=== PATIENT | female | born 1960 | race Caucasian/White ===

== ENCOUNTER → 2020-01-28 11:32 | Outpatient (CLI) | payer BC, SELFPAY ==
[2020-01-28 12:13] LABS: Add Manual Diff / Slide Review NO; Basophils Absolute Auto 100 /uL (0-100); Eosinophils Absolute Auto 100 /uL (0-450); Eosinophils Percent Auto 1.3 % (2-4); Hematocrit 43.1 % (36-46); Hemoglobin 14.9 g/dL (12.0-16.0); Lymphocytes Absolute Auto 1800 /uL (1100-4500); Lymphocytes Percent Auto 24.1 % (25-40); Mean Corpuscular HGB Conc 34.5 % (30-36); Mean Corpuscular Hemoglobin 29.1 PG (26-34); Mean Corpuscular Volume 84.4 fL (80-100); Monocytes Absolute Auto 600 /uL (0-900); Monocytes Percent Auto 7.4 % (3-14); Neutrophils Absolute Auto 5000 /uL (1500-7000); Neutrophils Percent Auto 66.2 % (50-75); Platelet Count 298 X10^3/uL (150-400); Red Cell Distribution Width 12.8 % (11.6-14.8); White Blood Cell Count 7.6 X10^3/uL (4.5-11.0)
== END ==
PROVIDERS: PCP Nurse Practitioner; Referring Provider Orthopaedic Surgery; Visit Provider Orthopaedic Surgery
DX: Z01.818 Encounter for other preprocedural examination (principal); Z01.812 Encounter for preprocedural laboratory examination
CPT/HCPCS: 36415; 85025; 93005

== ENCOUNTER → 2020-02-01 13:11 | Outpatient (CLI) | payer BC, SELFPAY ==
[2020-02-02 01:10] LABS: COVID19 Sendout Not Detected (Not Detect)
== END ==
PROVIDERS: PCP Nurse Practitioner; Visit Provider Physician Assistant
DX: Z01.812 Encounter for preprocedural laboratory examination (principal)
CPT/HCPCS: 87635

== ENCOUNTER 2020-02-04 06:13 | Day surgery (SDC) | payer BC, SELFPAY ==
[2020-01-28 09:54] VITALS: BMI 25.4
[2020-02-04] VITALS (16 sets, daily range): BP systolic 123–162; BP diastolic 79–109; PULSE 76–114; RESP 14–17; TEMP 35.9–36.4; O2SAT 88–100; BMI 24.5
--- NOTE | 2020-02-04 | DI.RAD.S_ITS ---
PROCEDURE: XR CERVICAL SPINE 2V OR 3V INDICATIONS: C4-5, C5-6 ACDF TECHNIQUE: 2 view(s) of the cervical spine were acquired. COMPARISON: None. FINDINGS: 2 intraoperative fluoroscopy demonstrate discectomy and anterior fusion at C4-C5 and C5-C6. IMPRESSION: Discectomy and anterior fusion at C4-C5 and C5-C6. Dictated by: Last Morgan M.D. on 02/04/2020 at 9:52 Approved by: Last Morgan M.D. on 02/04/2020 at 9:53
[2020-02-04] MEDS: LACTATED RINGERS 1,000 ML 42 ML IV ×2 (07:14→08:50)
--- NOTE | 2020-02-04 07:20 | P.HP_ITS ---
History of Present Illness History of Present Illness Date Patient Seen: 02/04/20 Time Patient Seen: 07:20 Chief complaint: *OPB*[id number] Narrative: 60-year-old female with neck pain and radiation going down her legs. Symptoms started April 2019 without incident. When she takes her head down she gets numbness and tingling and burning that goes globally down both her legs to the ankles. Her neck feels heavy at times but is not severely painful. She does have frequent headaches. She denies pain numbness or weakness going on the arms. She does have some pain in the low back. Patient History Medical History Cervical myelopathy (Acute) Migraines (Acute) Neck pain (Acute) Numbness (Acute) Sinus drainage (Acute) Surgical History Hx of thumb surgery (Acute) [place] teeth removed (Acute) Family & Social History Social History: household members spouse Prior Living Arrangements House Safety & Behavioral: Feels Safe in Current Yes Environment Been Physically Hurt or No Threatened By a Person Suicidal Ideation Description None Suicide Plan Description No Plan Tobacco & Substance use: Smoking Status Never smoker alcohol intake never Substance Use Type does not use Meds Home Medications and Allergies Home Medications Medication Instructions Recorded Confirmed Type No Known Home Medications 01/28/20 01/28/20 History Allergies Allergy/AdvReac Type Severity Reaction Status Date / Time Penicillins Allergy Severe All over Verified 02/01/20 13:20 body hives codeine AdvReac Severe I feel Verified 02/01/20 13:20 like I'm going to fall off the end of the earth erythromycin base AdvReac Severe Gastrointestinal Verified 02/01/20 13:20 Upset Review of Systems Constitutional Constitutional: Denies chills and Denies fever(s) Exam Vital Signs (past 8 hours): - 02/04/20 06:59 Temperature 97.6 F Pulse Rate 76 Respiratory Rate 16 Blood Pressure 140/93 H Pulse Oximetry 100 Oxygen Delivery Method Room Air Const Orientation: alert and oriented x3 Resp Auscultation: clear to auscultation bilaterally Cardio Rate: regular rate Rhythm: regular rhythm Back/Spine/Pelvis Other: 5/5 motor both upper extremities, negative Marisa both upper extremities. 3+ bilateral triceps reflex. Tender lower cervical paraspinal muscles. Flexion of the neck reproduces symptoms in the legs. Objective Imaging Cervical MRI: My impression: From 09/24/2019 shows I C4-5 moderate central, severe right moderate to severe left foraminal narrowing. C5-6 moderate central, severe bilateral foraminal narrowing. C6-7 mild bilateral foraminal narrowing C7-T1 opened. Increased signal posterior in the spinal cord at C6. Assessment & Plan Assessment & Plan narrative: Cervical stenosis with myelopathy We are going to go ahead today with C4-5 and C5-6 ACDF with bone graft. All questions have been answered. Consent obtained. COVID-19 COVID-19 status: Negative Result date/Date tested (Pos, Neg/Pending): 02/01/20
[2020-02-04] MEDS: CLINDAMYCIN 600 MG/50 ML PIGGYBACK 50 MG IV ×2 (07:50→16:23)
--- NOTE | 2020-02-04 08:16 | SUR.OPER ---
Supine on padded OR bed, head on gel donut, arms padded and tucked at side, legs uncrossed, safety belt at thigh, tape over blanket over lower legs .
[2020-02-04] MEDS: BUPIVACAINE 0.25% W/ EPI 30 ML VIAL INJ (08:29)
[2020-02-04] MEDS: THROMBIN (RECOMBINANT) 5,000 UNIT VIAL 5000 UNIT TOP ×3 (08:29→09:21)
[2020-02-04] MEDS: SODIUM CHLORIDE 0.9% 1,000 ML, GENTAMICIN 80 MG IRR (08:31)
--- NOTE | 2020-02-04 09:49 | P.OP_ITS ---
Operative Date/Time/Diagnoses Date of procedure: 02/04/20 Time of procedure: 09:49 Pre-op diagnosis: Cervical stenosis with myelopathy Post-op diagnosis: same Procedure & Clinicians Procedure: C4-5, C5-6 ACDF with cage Use of microscope Iliac crest bone graft aspirate Same procedure as scheduled: Yes Indications: [age] year old female with cervical myelopathy. They had failed conservative management and requested operative intervention. Risks and benefits of surgery were discussed and appropriate consents were obtained. Surgeon: Juan Miguel Tejada Service Station Operator: Scot Lawton Anesthesia Type: General Operative Notes Findings: None Closure Type: primary Specimen(s): none sent Prosthetic devices, grafts, tissues, transplants, or devices: [place] JULIO-C Estimated Blood Loss (mL): 30 Procedure in detail: Patient was brought to the operating room and intubated on the table. A time-out was performed. Preoperative antibiotics were given. The neck was prepped and draped in the standard sterile fashion. Using a skin fold, we made a 3 cm oblique incision on the left side. We used Bovie to go through the platysma and then did a standard anterolateral blunt dissection down to the precervical fascia. Fascia was nicked and elevated up. A marker was placed and x-ray was taken for localization. We then subperiosteally elevated up the longus colli muscles. Self-retaining retractors were placed. Eureka pins were placed. We then brought in the microscope. A scalpel used to perform an annulotomy. We then used a combination of pituitaries and curettes and Kerrison to perform a complete anterior diskectomy at C4-5. We decorticated the cartilage with the curettes. We took down the PLL and used Kerrison to remove any posterior disc material and osteophytes. She had a copious amount of bleeding from the left- sided epidural vein coming from the foramen. We had to used Gelfoam and thrombin and finally FloSeal to get this to clot and stop bleeding. Once this stopped, we are able to finish our decompression. At the end we could from the nerve hook cephalad caudally and out the foramen and everything was opened. A small stab incision was made over the left anterior iliac crest. A Jamshidi needle was advanced into the pelvis and 2 mL of bone marrow was aspirated. We then used the trials. We then packed a 15.5 x 12 x 5 mm JULIO-C cage with Primagen bone graft and the iliac crest harvest. The cage was placed under fluoroscopic guidance. We then placed our two locking plates. We then moved down to C5-6. Complete diskectomy was performed. We decorticated the cartilage with the curettes. We took down the PLL and remove the posterior osteophytes. We could run the nerve hook and everything was open. We then trialed and placed another 15.5 x 12 x 5 mm JULIO-C cage with Primagen bone graft and the iliac crest harvest. The self-retaining retractors and Eureka pins were removed and final x-rays taken. The wound was irrigated. There was no bleeding. The carotid was beating nicely. The platysma was closed. The superficial was closed. The skin was closed. A sterile dressing was placed. They were then extubated and brought to recovery room with no complications. Complications: none Post-operative Condition: stable Disposition: PACU Plan for aftercare: Inpatient overnight. Soft collar for comfort.
[2020-02-04] MEDS: fentaNYL 100 MCG/2 ML INJ IV ×2 (10:14→10:19)
[2020-02-04] MEDS: HYDROMORPHONE 2 MG INJ 0.5 MG IV ×2 (10:42→10:47)
[2020-02-04] MEDS: hydrOXYzine 50 MG/ML INJ 25 MG IM (11:07)
--- NOTE | 2020-02-04 11:24 | SUR.PHASEI ---
Report called to floor rn and pt transferred to floor in stable condition
--- NOTE | 2020-02-04 11:35 | SUR.PHASEI ---
Pt to room 212 and handoff to bill Connolly in room. Pt stable and vs wnl, dressings x2 D&I, scds on, clothing bag to closet.
[2020-02-04] MEDS: LACTATED RINGERS 1,000 ML 125 ML IV (11:54)
[2020-02-04] MEDS: ACETAMINOPHEN 325 MG TABLET 650 MG PO ×2 (11:58→17:33)
[2020-02-04] MEDS: CELECOXIB 200 MG CAPSULE 400 MG PO (11:58)
--- NOTE | 2020-02-04 16:12 | OT.IP.EVAL ---
Current Diagnoses Disease of spinal cord, unspecified (02/04/20) Spinal stenosis, cervical region (02/04/20) Surgery Performed Operation Date: 02/04/20 07:45 Actual Procedures p C45 & C56 anterior discectomy & fusion w. bone graft - Juan Miguel Tejada MD Past Medical History (Last Reviewed 02/04/20 @ 07:21 by Juan Miguel Tejada MD) Cervical myelopathy (Acute) Migraines (Acute) Neck pain (Acute) Numbness (Acute) Sinus drainage (Acute) Surgical History (Last Reviewed 02/04/20 @ 07:21 by Juan Miguel Tejada MD) Hx of thumb surgery (Acute) [place] teeth removed (Acute) Occupational Therapy Inpatient Evaluation/Re-Eval M1 PT/OT-IP Prior Functional Status Start: 02/04/20 16:19 Freq: NEEDED Status: Active Protocol: Document 02/04/20 16:12 [facility] (Rec: 02/04/20 16:35 [facility] [id number]) Medical Review Prior Functional Status Communication Independent. Mobility and Gait Independent with no device. Pt states able to walk 5 miles with her girlfriend. Activities of Daily Living and IADL's Completely independent for ADl and IADl needs. Social History Household Members spouse Living Arrangements House Number of Floors (Floors) One Floor Number of Stairs To Enter/Railing? 1 step from the garage. Home Environment Standard Height Toilet,Walk in Shower,Built-In Shower Seat Home Equipment Hand Held Shower M2 OT-IP Current Condition Start: 02/04/20 16:19 Freq: Status: Active Protocol: Document 02/04/20 16:12 [facility] (Rec: 02/04/20 16:35 [facility] [id number]) Occupational Therapy Current Condition Current Condition Evaluation Date 02/04/20 Treatment Diagnosis Cervical stenosis with myelopathy, s/p C4-5, C5-6 ACDF with bone graft Diagnosis Onset Date 02/04/20 Post Operative Precautions Cervical Spine Precautions Soft Collar for Comfort,No Heavy Lifting,Log Roll Weight Bearing Status Weight Bearing Status Weight Bear as Tolerated M3 OT- IP Subjective and Pain Start: 02/04/20 16:19 Freq: Status: Active Protocol: Document 02/04/20 16:12 [facility] (Rec: 02/04/20 16:35 [facility] [id number]) OT- Subjective Occupational Therapy Visit Type Type Initial Evaluation Visit Start Time 13:46 Visit Stop Time 16:12 Total Visit Minutes 58 Notes Pt seen for split session as got nauseous initially when getting up and BP increased. Occupational Therapy Visit Comments Patient Comments Pt's present in the room and PT present for the second part. Patient/Caregiver Goals TO go home today. OT Pain Assessment Pain When Pain Assessed At Rest Pain Present Pain Present Pain Reported Location neck Intensity 3 M4 OT- IP ADL's Start: 02/04/20 16:19 Freq: Status: Active Protocol: Document 02/04/20 16:12 [facility] (Rec: 02/04/20 16:35 [facility] [id number]) OT MDI-Levo-Qawwecc General Evaluation Self-Feeding Ability Independent Comments OT Self-Feeding Comments Pt given information for swallowing needs after having ACDF surgery. OT ADL-Grooming General Evaluation Grooming Ability Independent OT ADL-Oral Care Comments Oral Care Comments Cue to spit into a cup or lean into the sink. OT ADL-Dressing General Eval Lower Body Dressing Ability Independent Comments OT Dressing Comments Inital VC to allie.doff the soft collar. OT ADL-Toileting General Evaluation Toileting Ability Standby Assistance Comments OT Toileting Comments Distant sba and vc mainly to slow down. OT ADL-Bathing Comments OT Bathing Comments Pt not wanting to shower here and preferring to go home. VC not to extend her neck excessively and have her assist with HHSP. M5 OT- IP IADL's Start: 02/04/20 16:19 Freq: Status: Active Protocol: Document 02/04/20 16:12 [facility] (Rec: 02/04/20 16:35 [facility] [id number]) OT-Instrumental Activities of Daily Living Home Safety Awareness Home Safety Comments At this time, pt's to assist for all IADl needs. Pt mainly needing vc to slow down and be careful not to twist her neck and move her body and head at the same time. Medication Management Medication Management No Deficits Identified Money Management Money Management No Deficits Identified Meal Preparation Meal Preparation Caregiver Provides Assist Duct Layer Helper Duct Layer Helper Caregiver Provides Assist M6 OT- IP Functional Cognition Start: 02/04/20 16:19 Freq: Status: Active Protocol: Document 02/04/20 16:12 [facility] (Rec: 02/04/20 16:35 [facility] [id number]) Cognitive Factors Limiting Selfcare Function Cognitive Ability Level of Alertness Alert Patient Orientation Name,Age,Birthday,Month,Date, Year,Day of Week,Place, Situation Attention Span Ability Capable of Focused Attention, Capable of Sustained Attention Ability to Follow Commands Able to Follow Multi-Step Commands Memory Description No Deficits Noted Safety Awareness Decreased Ability to Apply Precautions,Underestimates Need for Assistance Problem Solving Ability No deficits Noted Cognitive Comments Cognitive Assessment Comments Pt mainly just needing cues to slow down and incorporate her cervical precautions. Pt's has good understanding for all needs to be able to assist pt for ADl's. OT- Vision and Hearing OT- Hearing Assessment OT- Hearing Assessment WFL OT- Vision Assessment Visual Acuity Glasses All The Time M7 OT- IP Mobility and Balance Start: 02/04/20 16:19 Freq: Status: Active Protocol: Document 02/04/20 16:12 [facility] (Rec: 02/04/20 16:35 [facility] [id number]) OT- Bed Mobility Assessment Rolling Type of Rolling Roll to Right Level of Assistance Standby Assistance Supine to Sit Supine to Sit Assist Standby Assistance Sit to Supine Sit to Supine Assist Standby Assistance OT-Transfer Assessment Sit to and From Stand Sit to and from Stand Standby Assistance Transfers Transfer Ability Standby Assistance,Contact Guard Assistance Technique Transfer Destination Bed,Chair,Toilet Transfer Technique Stand Step Pivot Devices Transfer Assistive Devices None,Gait Belt Comments Mobility Comments BP for 1st session supine 130/ 53, sitting 150/110, then pt having to lie down due to nausea and bp supine 153/92 and sitting 163/1000 and not wanting to continue. On the second session no issues with BP and remained steady. O2 on RA 98-99% OT- Gait Assessment Gait Gait Assistance Required: Standby Assistance,Contact Guard Assist Comments Gait Ability Comments Initially pt needign CGA and holding onto surface and then after walking in the hallways SBA. OT- Balance Assessment Sitting Balance and Reactions Static Sitting Balance Ability Normal Dynamic Sitting Balance Ability Normal Standing Balance and Reactions Static Standing Balance Ability Normal Dynamic Standing Balance Ability Good M8 OT- IP Objective Assessments Start: 02/04/20 16:19 Freq: Status: Active Protocol: Document 02/04/20 16:12 [facility] (Rec: 02/04/20 16:35 [facility] [id number]) OT Gross Range of Motion Upper Extremity Range of Motion Assessment Within Functional Limits OT Strength Upper Extremity Strength Assessment Within Functional Limits OT-Muscle Tone Assessment Muscle Tone WNL Yes M9 OT- IP Assessment and Plan Start: 02/04/20 16:19 Freq: Status: Active Protocol: Document 02/04/20 16:12 [facility] (Rec: 02/04/20 16:35 [facility] [id number]) OT Summary Assessment and Plan Potential Rehabilitation Potential Excellent Analytic Complexity at Evaluation Low Summary OT Impairments Functional Cognition,Bathing Progress Towards Goals Progressing Toward Goals Assessment Summary Pt low complexity and main barriers are pt needing to slow down and think first to incorporate her cervical precautions during ADl and mobility needs. Pt's present and has good understanding to be able to assist pt if needed. Pt looking to go home when medically stable. Goals Bathing Goal Independent Patient/Caregiver Education Goal Demonstrate Post-Op Precautions,Caregiver Independent Assisting Patient Days to Meet Goals 1 Frequency of Treatment Frequency Of Treatment Once a Day Treatment Plan OT Treatment Plan ADL Training,Functional Cognition Training,Functional Mobility,Patient/Family Education,Discharge Planning Other Treatment Recommendations and Next shower if still here Treatment Focus Discharge Recommendations OT Discharge Recommendations Home with Assistance Transportation Needs at Discharge Private Vehicle
--- NOTE | 2020-02-04 16:14 | PC.NURSE ---
Post-op: Late entry Arrived to room 212 at 1130. Drowsy but awake, oriented X3. C/O feeling dizzy, especially after transport to the floor from PACU. Vitals has been stable, hypertensive. Room air, mid-upper 90's. Dizziness resolved after resting a while. Denied N/V and has been able to take PO's without s/sx aspiration. Throat is sore w/ swallowing and voice is soft. Dressings to anterior neck and L hip C/D/I, soft collar in place. Patient reported new-onset numbness/tingling to bilateral hands (not present prior to surgery). Circulation WNL to all extremities, licensed home inspector strength strong and equal bilaterally. This greeting card writer got message to Dr Tejada (via a nurse in his OR) letting him know about the new numbness/tingling in hands and he said that's normal after surgery and that he would be up to see patient when his other cases are done- this info was relayed to patient, her and oncoming RN. Patient agreed to alert nursing staff should she develop any new neuro s/sx or change in s/sx in bilateral hands. Rated pain in neck/shoulders/head 4/10 and was medicated with Tylenol and Celebrex w/ good effect. IVF per orders. SCD's to BLE's. Denied urge to void. Patient resting quietly in bed at shift change. Call light and belongings within reach, bed alarm on. at bedside and attentive.
--- NOTE | 2020-02-04 16:35 | PM.PNPO.1 ---
Subjective Subjective Date Patient Seen: 02/04/20 Time Patient Seen: 16:35 Interval history: She's doing well. Had some finger numbness at first but that resolved. No leg symptoms with limited ROM of neck. Swallowing well, ate pudding and crackers Exam Vital Signs (past 8 hours): - 02/04/20 09:49 02/04/20 09:53 02/04/20 09:58 Temperature 96.9 F L Pulse Rate 114 H 94 H 86 Respiratory Rate 16 14 16 Blood Pressure 123/83 143/86 H 153/86 H Pulse Oximetry 95 88 L 94 02/04/20 10:03 02/04/20 10:15 02/04/20 10:33 Temperature Pulse Rate 102 H 101 H 86 Respiratory Rate 15 15 16 Blood Pressure 153/100 H 156/89 H 153/87 H Pulse Oximetry 99 98 98 02/04/20 10:45 02/04/20 11:05 02/04/20 11:20 Temperature 97 F L 97.2 F L Pulse Rate 87 90 98 H Respiratory Rate 16 16 16 Blood Pressure 150/83 H 157/87 H 141/80 H Pulse Oximetry 98 98 98 02/04/20 11:36 02/04/20 12:05 02/04/20 12:40 Temperature 96.6 F L 97.0 F L 97.1 F L Pulse Rate 91 H 98 H 89 Respiratory Rate 14 16 16 Blood Pressure 144/83 H 158/79 H 155/109 H Pulse Oximetry 96 98 96 02/04/20 13:30 02/04/20 14:35 02/04/20 15:20 Temperature 97.1 F L 97.5 F L 96.8 F L Pulse Rate 88 92 H 89 Respiratory Rate 16 16 17 Blood Pressure 151/89 H 162/96 H 144/87 H Pulse Oximetry 96 95 95 Oxygen Delivery Method Room Air Oxygen Flow Rate 0 Const Orientation: alert and oriented x3 Back/Spine/Pelvis Other: CDI. No swelling. 5/5 motor both upper extremities Assessment & Plan Post-op Postoperative Procedures: Procedures Operation Date: 02/04/20 07:45 Actual Procedures Side Surgeon p C45 & C56 anterior discectomy & fusion w. bone graft Juan Miguel Tejada MD she is doing well. She wants to go home. This is fine. Quality VTE Deep Vein Thrombosis/Pulmonary Embolism Present on Admission: No
--- NOTE | 2020-02-04 17:02 | PT.IIE ---
Current Diagnoses Disease of spinal cord, unspecified (02/04/20) Spinal stenosis, cervical region (02/04/20) Surgery Performed Operation Date: 02/04/20 07:45 Actual Procedures p C45 & C56 anterior discectomy & fusion w. bone graft - Juan Miguel Tejada MD Surgical History (Last Reviewed 02/04/20 @ 07:21 by Juan Miguel Tejada MD) Hx of thumb surgery (Acute) [place] teeth removed (Acute) Medical History (Last Reviewed 02/04/20 @ 07:21 by Juan Miguel Tejada MD) Cervical myelopathy (Acute) Migraines (Acute) Neck pain (Acute) Numbness (Acute) Sinus drainage (Acute) Physical Therapy Inpatient Evaluation/Re-Eval M1 PT/OT-IP Prior Functional Status Start: 02/04/20 16:19 Freq: NEEDED Status: Active Protocol: Document 02/04/20 16:44 AW (Rec: 02/04/20 17:00 AW [id number]) Medical Review Prior Functional Status Medical History Reviewed Yes Communication Independent. Mobility and Gait Independent with no device. Pt states able to walk 5 miles with her girlfriend. Activities of Daily Living and IADL's Completely independent for ADl and IADl needs. Social History Household Members spouse Living Arrangements House Number of Floors (Floors) One Floor Number of Stairs To Enter/Railing? 1 step from the garage. Home Environment Standard Height Toilet,Walk in Shower,Built-In Shower Seat Home Equipment Hand Held Shower Additional Social History Comment Pt lives with her spouse, Demetrius , who will be available and able to assist as necessary at discharge. M2 PT-IP Current Condition Start: 02/04/20 11:54 Freq: NEEDED Status: Active Protocol: Document 02/04/20 16:44 AW (Rec: 02/04/20 17:00 AW [id number]) Physical Therapy Current Condition Current Condition Evaluation Date 02/04/20 Treatment Diagnosis s/p C4-5 C5-6 ACDF; difficulty in walking Onset Date 02/04/20 Precautions Cervical Spine Precautions Soft Collar for Comfort,No Heavy Lifting,Log Roll Brace soft collar for comfort M3 PT-IP Subjective Start: 02/04/20 11:54 Freq: NEEDED Status: Active Protocol: Document 02/04/20 16:44 AW (Rec: 02/04/20 17:00 AW [id number]) Subjective Physical Therapy Visit Type Type Initial Evaluation Visit Start Time 15:52 Visit Stop Time 16:10 Total Visit Minutes 18 Notes Pt seen for co-eval with OT. Pt's , Demetrius, present throughout Physical Therapy Visit Comments Patient Comments Pt was feeling poorly earlier but is ready to participate with therapy Patient Goals Pt would like to discharge home today Therapy Pain Assessment Pain When Pain Assessed During Mobility Pain Present Pain Present Pain Reported Location neck Intensity 4 Scale Used Numeric (0 - 10) Pain Management Techniques Apply Cold,Timing of Activity with Medications M4 PT-IP Mobility and Gait Start: 02/04/20 11:54 Freq: NEEDED Status: Active Protocol: Document 02/04/20 16:44 AW (Rec: 02/04/20 17:00 AW [id number]) PT-Bed Mobility Assessment Rolling Type of Rolling Log Rolling,Roll to Right Level of Assist Standby Assistance Supine to Sit Supine to Sit Standby Assistance Scooting Scooting to Edge of Bed Standby Assistance PT-Transfer Assessment Sit to and From Stand Sit to and from Stand Standby Assistance,2 Person Assistance Equipment Transfer Assistive Device Gait Belt Orthotic/Prosthetic Devices or Brace: Yes Transfers Transfer Destination Chair,Toilet Transfer Ability Level of Assist Standby Assistance,Use of Upper Extremities Comments Mobility Comments Pt was reclined in bed upon PT arrival. BP was 140/84 and SBP remained steady in the 140 's to low 150's throughout assessment. She completed log roll to her right side and then sidelying to sit SBA with cues to slow down and avoid twisting movements of her spine. She completed sit to stand steadily with SBA and then ambulated to the toilet. She transferred to and from the toilet SBA with good eccentric control of descent. Pt then ambulated 220 feet in the halls without AD SBA before returning to the room and transferring to the chair SBA. Gait Assessment Gait Gait Assistance Required: Standby Assistance Distance (Feet) 220 Assistive Devices Assistive Device Gait Belt Orthotic/Prosthetic Devices or Brace: Yes Gait Deviations General Gait Pattern Decreased Feet Clearance Factors Limiting Gait Function Factors Limiting Gait Function Limited Range of Motion,Pain, Poor Safety Awareness Comments Gait Comments Pt required cues to slow down and to avoid twisting movements during ambulation but was able to incorporate suggestions easily, modifying her pace and turning with shoulders/hips on block. Stair Climbing Assessment Evaluation Level of Assist On Stairs Standby Assistance Technique/Endurance Stair Climbing Direction Ascend and Descend Stair Climbing Technique Step to Step Number of Steps Climbed 1 Query Text: Stair Climbing Set # Repetitions (reps) 2 Comments Stair Climbing Comments Pt navigated the platform step with good attention to lower visual field cuts created by wearing a face mask and a cervical collar. PT-Balance Assessment Sitting Balance and Reactions Static Sitting Balance Ability Normal Dynamic Sitting Balance Ability Normal Standing Balance and Reactions Static Standing Balance Ability Normal Dynamic Standing Balance Ability Good Device Used none M5 PT-IP Objective Assessments Start: 02/04/20 11:54 Freq: NEEDED Status: Active Protocol: Document 02/04/20 16:44 AW (Rec: 02/04/20 17:00 AW [id number]) Orientation Orientation/Cognition Level of Alertness Alert Orientation Name,Day of Week,Place, Situation Language Function Ability No Deficits Noted Safety Awareness Decreased Safety Awareness Memory Description No Deficits Noted Comments Pt was slightly impulsive with all mobility. Gross Range of Motion Lower Extremity ROM Assessment Within Functional Limits Strength Lower Extremity Strength Assessment Within Functional Limits Coordination Assessment Gross Coordination Gross Coordination WNL Sensation Assessment Sensation Gross Sensation WNL Comments Sensation Comments No deficits noted on exam Muscle Tone Muscle Tone WNL Yes M6 PT-IP Treatment Start: 02/04/20 11:54 Freq: NEEDED Status: Active Protocol: Document 02/04/20 16:44 AW (Rec: 02/04/20 17:00 AW [id number]) Physical Therapy Treatment Education Education Provided Precautions,Weight Bearing Status,Post-Op Packet,Safety Brace Education [place],Patient, Caregiver Other Treatments Other Treatment Performed Provided education on role of PT, plan of care, post-op precautions, and safe mobility while using a cervical collar . Also gave pt feedback on cervical collar fitting using the mirror for visual feedback . Pt was able to independently don and doff the collar. M7 PT-IP Assessment and Plan Start: 02/04/20 11:54 Freq: NEEDED Status: Active Protocol: Document 02/04/20 16:44 AW (Rec: 02/04/20 17:00 AW [id number]) PT Summary Assessment and Plan Potential Rehabilitation Potential Good Status of Condition at Evaluation Evolving Summary Impairments Pain,ROM,Balance,Bed Mobility, Transfers,Gait Assessment Summary Marjorie is an active 60 yo woman seen for PT evaluation on POD0 following ACDF. She is completely independent at baseline. On evaluation, she required no more than SBA with all mobility but did require verbal cues to slow down and to plan her movements in order to avoid twisting. Pt and her spouse understood the precautions and were confident they could manage at home. PT anticipates this pt will meet the goals of this plan of care if she stays overnight and is safe to discharge once medically cleared. Goals Bed Mobility Goal Independent Transfer Goal Independent Gait Goal Independent Gait Distance 220 Other Goals - up/down 1 platform step IND Days to Meet Goals 1 Frequency of Treatment Frequency Of Treatment Twice a Day Treatment Plan Physical Therapy Treatment Plan Bed Mobility Training,Transfer Training,Gait Training, Therapeutic Exercise,Balance Retraining,Post Op Education, Discharge Planning,Hot or Cold Pack Recommendations To Nursing Amount of Assist Needed Standby Assistance Discharge Recommendations PT Discharge Recommendations Home with Assistance Transportation Needs at Discharge Private Vehicle
== END 2020-02-04 17:50 | disposition home or self-care (01) ==
LOC: OR 06:14 → AC 06:30
PROVIDERS: PCP Nurse Practitioner; Referring Provider Orthopaedic Surgery; Visit Provider Orthopaedic Surgery
PROC: (CPT 22551; principal; 2020-02-04 07:45)
DX: M48.02 Spinal stenosis, cervical region (principal); G95.89 Other specified diseases of spinal cord
CPT/HCPCS: 22551; 22552; 22853 ×2; 20939; 72040; 76000; 97161; 97165; 97530; 97535; C1776; J1170; J2250; J2704; J3010; J3410

== ENCOUNTER → 2020-06-08 15:38 | Outpatient (CLI) | payer BC, SELFPAY ==
[2020-02-04 12:02] VITALS: BMI 24.5
--- NOTE | 2020-06-08 | DI.MRI.S_ITS ---
PROCEDURE: MR LUMBAR SPINE WO CON INDICATIONS: Cervical/Lumbar radiculopathy TECHNIQUE: Noncontrast sagittal T1 spin echo and T2 fast echo, sagittal STIR, axial T1 and T2 fast spin echo through the lumbar spine. In cases with scoliosis, additional coronal T2 fast spin echo may be performed. COMPARISON: [facility] [place], [place], XR LUMBAR SPINE 2 OR 3 VIEWS, 03/18/2020, 13:45. FINDINGS: Image quality: Excellent. Alignment and Curvature: Mild dextroconvex scoliotic curvature is seen. Bone Marrow: Marrow is of normal overall signal. No acute vertebral body compression fractures. Spinal Cord: Conus medullaris terminates at the L1 level. Visualized cord demonstrates normal signal and size. Paraspinous Soft Tissues: No paravertebral masses. T12-L1: The disc height is well-preserved. Loss of disc signal is seen at this level. Mild generalized disc bulge is seen. Mild to moderate facet hypertrophy is seen. There is bbee-qx-sscousoh left-sided and mild right-sided neural foraminal narrowing seen. No significant central canal narrowing is seen. L1-L2: The disc height is well-preserved. Loss of disc signal is seen at this level. Mild generalized disc bulge is seen. Mild facet joint hypertrophy is seen. There is mild right-sided and minimal left-sided neural foraminal narrowing seen. No significant central canal narrowing is seen. L2-L3: The disc height is well-preserved. Loss of disc signal is seen at this level. Moderate disc bulge is seen, which is eccentric to the right. There is a central disc protrusion. Mild to moderate facet hypertrophy is seen. There is moderate left-sided and mild right-sided neural foraminal narrowing seen. Moderate central canal narrowing is seen. L3-L4: Snbx-ip-wxzxglst loss of disc height is seen posteriorly. Moderate disc bulge is seen, which is eccentric to the right. Moderate facet joint hypertrophy is seen. Moderate bilateral neural foraminal narrowing is seen. Mild to moderate central canal narrowing is seen. L4-L5: At least moderate loss of disc height and disc signal can be seen. Reactive marrow endplate changes are seen, which demonstrate mixed T1 weighted and T2-weighted signal, and are attributed to a combination of edema and fatty metaplasia (Modic type I and Modic type II changes). Moderate to prominent disc bulge is seen. Moderate facet hypertrophy is seen, right worse than left. There is moderate to severe right-sided and at least moderate left-sided neural foraminal narrowing seen. There is a degree of compression seen upon the exiting nerve roots. Moderate to severe central canal narrowing is seen. L5-S1: The disc height is well-preserved. Loss of disc signal is seen at this level. Moderate disc bulge is seen, with a central disc protrusion. Moderate facet joint hypertrophy is seen. There is emmy-uy-digtksib right-sided and moderate left-sided neural foraminal narrowing seen. Mild to moderate central canal narrowing is seen. IMPRESSION: Multiple levels of lumbar spine degenerative change are seen, which are most prominent at the L4-L5 level. Dictated by: Devyn Pace M.D. on 06/08/2020 at 16:53 Approved by: Devyn Pace M.D. on 06/08/2020 at 16:58
--- NOTE | 2020-06-08 | DI.MRI.S_ITS ---
PROCEDURE: MR CERVICAL SPINE WO CON INDICATIONS: Cervical/Lumbar radiculopathy TECHNIQUE: Noncontrast sagittal T1 spin echo and T2 fast spin echo, sagittal STIR, foraminal oblique sagittal T2 fast spin echo, and axial gradient echo or T2 fast spin echo through the cervical spine. COMPARISON: None. FINDINGS: Image quality: Excellent. Alignment and Curvature: Grade 1 anterolisthesis of C2 on C3. Trace anterolisthesis of C7 on T1. Bone Marrow: Multilevel degenerative endplate sclerosis and spurring. Diffuse facet arthropathy. Postsurgical changes from C4-C6 related to ACDF. Spinal Cord: Visualized spinal cord has normal size and signal. No cerebellar tonsillar herniation. Paraspinous Soft Tissues: No paravertebral masses. Prevertebral soft tissues are normal in thickness. C2-C3: Minimal canal narrowing. Mild right foraminal stenosis. Moderate to severe left foraminal narrowing with possible nerve root compression. No interval change C3-C4: Mild canal narrowing. Moderate right foraminal stenosis with possible nerve root compression. Severe left foraminal stenosis with nerve root compression. No interval change C4-C5: Mild canal narrowing. Severe right foraminal stenosis with nerve root compression. Mild to moderate left foraminal narrowing. No interval change C5-C6: No canal narrowing. Severe bilateral foraminal stenosis with nerve root compression. No interval change C6-C7: Mild canal narrowing. Moderate to severe right foraminal stenosis, with nerve root compression. Mild to moderate left foraminal stenosis. No interval change C7-T1: Mild canal narrowing. Mild to moderate bilateral foraminal narrowing. No interval change. IMPRESSION: Multilevel cervical spondylosis and facet arthropathy, with postsurgical changes as above. No high-grade canal stenosis. Diffuse, bilateral foraminal stenoses as detailed above by spinal level. No interval progression. Dictated by: Noah Isaac M.D. on 06/08/2020 at 16:40 Approved by: Noah Isaac M.D. on 06/08/2020 at 16:47
== END ==
PROVIDERS: Referring Provider Orthopaedic Surgery; Visit Provider Orthopaedic Surgery
DX: M47.26 Other spondylosis with radiculopathy, lumbar region (principal); M47.27 Other spondylosis with radiculopathy, lumbosacral region; M43.12 Spondylolisthesis, cervical region; M47.22 Other spondylosis with radiculopathy, cervical region; M48.02 Spinal stenosis, cervical region; Z98.1 Arthrodesis status
CPT/HCPCS: 72141; 72148

== ENCOUNTER → 2020-10-30 11:41 | Outpatient (CLI) | payer BC, SELFPAY ==
[2020-02-04 12:02] VITALS: BMI 24.5
--- NOTE | 2020-10-30 | DI.CT.S_ITS ---
PROCEDURE: CT SINUS SCREEN WO CON INDICATIONS: Cough TECHNIQUE: Noncontrast 3.0 mm axial images acquired from the frontal sinuses to the mid-sella, with coronal and sagittal reformats. For radiation dose reduction, the following was used: automated exposure control, adjustment of mA and/or kV according to patient size. COMPARISON: None. FINDINGS: Image quality: Excellent. Maxillary Sinuses: No bony remodeling or destruction. Sinuses are clear. Ethmoid Air Cells: No bony remodeling or destruction. Sinuses are clear. Sphenoid Sinuses: No bony remodeling or destruction. Sinuses are clear. Frontal Sinuses: No bony remodeling or destruction. Sinuses are clear. Ostiomeatal Complexes: Ostiomeatal complexes are patent. No [place] cells. Miscellaneous: Visualized intra-orbital contents are normal. No definite wally bullosa or paradoxical turbinate curvature. There is mild leftward nasal septal deviation. IMPRESSION: No active paranasal sinus disease is seen. Mild leftward nasal septal deviation incidentally noted. Dictated by: Devyn Pace M.D. on 10/30/2020 at 12:00 Approved by: Devyn Pace M.D. on 10/30/2020 at 12:01
== END ==
PROVIDERS: PCP Nurse Practitioner; Referring Provider Otolaryngology; Visit Provider Otolaryngology
DX: J32.4 Chronic pansinusitis (principal); R09.82 Postnasal drip; R05 Cough; J34.2 Deviated nasal septum
CPT/HCPCS: 70486

== ENCOUNTER → 2020-12-01 14:33 | Outpatient (CLI) | payer BC, SELFPAY ==
[2020-02-04 12:02] VITALS: BMI 24.5
--- NOTE | 2020-12-01 | DI.RAD.S_ITS ---
PROCEDURE: XR CHEST 2V INDICATIONS: COUGH TECHNIQUE: 2 views of the chest were acquired. COMPARISON: None. FINDINGS: Surgical changes and devices: None. Lungs and pleura: Lungs are clear. No pleural effusions or pneumothorax. Mediastinum: Mediastinal contours are normal. Heart size is normal. Bones and chest wall: No suspicious bony abnormalities. Soft tissues appear unremarkable. IMPRESSION: Normal for age, source of current cough symptoms is not seen. Dictated by: Jose G Linares M.D. on 12/01/2020 at 15:36 Approved by: Jose G Linares M.D. on 12/01/2020 at 15:36
== END ==
PROVIDERS: PCP Nurse Practitioner; Referring Provider Otolaryngology; Visit Provider Otolaryngology
DX: R05 Cough (principal)
CPT/HCPCS: 71046

== ENCOUNTER → 2021-03-15 11:35 | Outpatient (CLI) | payer BC, SELFPAY ==
[2020-02-04 12:02] VITALS: BMI 24.5
== END ==
PROVIDERS: PCP Student in an Organized Health Care Education/Training Program; Referring Provider Student in an Organized Health Care Education/Training Program; Visit Provider Student in an Organized Health Care Education/Training Program
DX: M85.88 Other specified disorders of bone density and structure, other site (principal); Z78.0 Asymptomatic menopausal state
CPT/HCPCS: 77080

== ENCOUNTER → 2021-04-17 12:34 | Outpatient (CLI) | payer BC, SELFPAY ==
[2020-02-04 12:02] VITALS: BMI 24.5
--- NOTE | 2021-04-17 12:35 | DI.MG.S_ITS ---
BILATERAL DIGITAL SCREENING MAMMOGRAM 3D/2D WITH CAD: 04/17/2021 CLINICAL: Routine screening. Comparison is made to exams dated: 12/18/2017 mammogram, 02/09/2016 mammogram, and 02/06/2015 mammogram - [facility]. There are scattered fibroglandular elements in both breasts. Current study was also evaluated with a Computer Aided Detection (CAD) system. No significant masses, calcifications, or other findings are seen in either breast. There has been no significant interval change. IMPRESSION: NEGATIVE There is no mammographic evidence of malignancy. A 1 year screening mammogram is recommended. This exam was interpreted at Station ID: [id number]. NOTE: For mammograms, a report in lay terms will be sent to the patient. Approximately 15% of breast malignancies will not be visualized mammographically. In the management of a palpable breast mass, a negative mammogram must not discourage biopsy of a clinically suspicious lesion. Electronically Signed By: Gavin goldberg/jennifer:04/20/2021 08:22:54 letter sent: Normal Exam ACR BI-RADS Category 1: Negative 3341F
== END ==
PROVIDERS: PCP Student in an Organized Health Care Education/Training Program; Referring Provider Nurse Practitioner; Visit Provider Nurse Practitioner
DX: Z12.31 Encounter for screening mammogram for malignant neoplasm of breast (principal)
CPT/HCPCS: 77063; 77067

== ENCOUNTER → 2022-05-11 11:27 | Outpatient (CLI) | payer BC, SELFPAY ==
[2020-02-04 12:02] VITALS: BMI 24.5
--- NOTE | 2022-05-11 11:29 | DI.MG.S_ITS ---
BILATERAL DIGITAL SCREENING MAMMOGRAM 3D/2D WITH CAD: 05/11/2022 CLINICAL: Routine screening. Comparison is made to exams dated: 04/17/2021 mammogram - [facility], 12/18/2017 mammogram, and 02/09/2016 mammogram - [facility]. There are scattered areas of fibroglandular density in both breasts (category b / 25%-50% glandular tissue). Current study was also evaluated with a Computer Aided Detection (CAD) system. No significant masses, calcifications, or other findings are seen in either breast. There has been no significant interval change. IMPRESSION: NEGATIVE There is no mammographic evidence of malignancy. A 1 year screening mammogram is recommended. Based on the Tyrer Cuzick model (a risk assessment model) the patient's lifetime risk is 5.3% and her 10 year risk is 2.4%. According to the ACR, ACS, and NCCN guidelines, an annual breast MRI exam along with mammogram is recommended if the patient's lifetime risk is 20% or greater. This exam was interpreted at Station ID: [id number]. NOTE: For mammograms, a report in lay terms will be sent to the patient. Approximately 15% of breast malignancies will not be visualized mammographically. In the management of a palpable breast mass, a negative mammogram must not discourage biopsy of a clinically suspicious lesion. Electronically Signed By: Gavin goldberg/jennifer:05/11/2022 14:58:41 letter sent: Normal Exam ACR BI-RADS Category 1: Negative 3341F
== END ==
PROVIDERS: Referring Provider Nurse Practitioner; Visit Provider Nurse Practitioner
DX: Z12.31 Encounter for screening mammogram for malignant neoplasm of breast (principal)
CPT/HCPCS: 77063; 77067

== ENCOUNTER → 2023-06-15 12:40 | Outpatient (CLI) | payer OTHER, SELFPAY ==
[2020-02-04 12:02] VITALS: BMI 24.5
--- NOTE | 2023-06-15 | DI.MG.S_ITS ---
BILATERAL DIGITAL SCREENING MAMMOGRAM 3D/2D WITH CAD: 06/15/2023 CLINICAL: Routine screening. Comparison is made to exams dated: 05/11/2022 mammogram, 04/17/2021 mammogram - [facility], and 12/18/2017 mammogram - [facility]. There are scattered areas of fibroglandular density in both breasts (category b / 25%-50% glandular tissue). Current study was also evaluated with a Computer Aided Detection (CAD) system. No significant masses, calcifications, or other findings are seen in either breast. There has been no significant interval change. IMPRESSION: NEGATIVE There is no mammographic evidence of malignancy. A 1 year screening mammogram is recommended. Based on the Tyrer Cuzick model (a risk assessment model) the patient's lifetime risk is 5.2% and her 10 year risk is 2.4%. According to the ACR, ACS, and NCCN guidelines, an annual breast MRI exam along with mammogram is recommended if the patient's lifetime risk is 20% or greater. This exam was interpreted at Station ID: [id number]. NOTE: For mammograms, a report in lay terms will be sent to the patient. Approximately 15% of breast malignancies will not be visualized mammographically. In the management of a palpable breast mass, a negative mammogram must not discourage biopsy of a clinically suspicious lesion. Electronically Signed By: Gavin goldberg/jennifer:06/15/2023 13:57:45 letter sent: Normal Exam ACR BI-RADS Category 1: Negative 3341F
--- NOTE | 2023-06-15 13:02 | DI.DEXA.S_ITS ---
Bone Density Report Name: JOSE ALDANA Age: 63 Sex: Female Ethnicity: White Date of : 1960 Indication: osteopenia; monitoring treatment; Referring Provider: BETTY ROBLES Study: Bone densitometry was performed. Exam Date: June 15, 2023 Accession number: [id number] Bone Density: Region BMD T-score Z-score Classification AP Spine(L1, L2, L3) 0.865 -1.4 0.3 Osteopenia Femoral Neck (Left) 0.676 -1.6 -0.1 Osteopenia Total Hip (Left) 0.787 -1.3 -0.1 Osteopenia Femoral Neck (Right) 0.629 -2.0 -0.5 Osteopenia Total Hip (Right) 0.720 -1.8 -0.6 Osteopenia Total Hip Mean 0.753 -1.6 -0.4 Osteopenia World Health Organization criteria for BMD impression classify patients as: Normal (T-score at or above -1.0), Osteopenia (T-score between -1.0 and -2.5), or Osteoporosis (T-score at or below -2.5). 10-year Fracture Risk: FRAX not reported because: Treated for osteoporosis Previous Exams: -- Region Exam Age BMD T-score BMD Change BMD Change Date g/cm2 vs Baseline vs Previous -- AP Spine (L1-L3) 06/15/2023 63 0.865 -1.4 0.089 (11.5%)# 0.089 (11.5%)# 03/15/2021 61 0.776 -2.2 Total Hip(Left) 06/15/2023 63 0.787 -1.3 0.029 (3.9%)# 0.029 (3.9%)# 03/15/2021 61 0.757 -1.5 Total Hip(Right) 06/15/2023 63 0.720 -1.8 -0.006 (-0.8%)# -0.006 (-0.8%)# 03/15/2021 61 0.726 -1.8 -- *Denotes significance at 95% confidence level, LSC for AP Spine = 0.022 g/cm2, LSC for Total Hip = 0.027 g/cm2 # Denotes dissimilar scan types or analysis methods Impression: The patient has low bone mass, based on the Right Femoral Neck T-score. No significant bone loss was observed. Discussion: PATIENT UNDER TREATMENT WITH NO SIGNIFICANT BMD LOSS SINCE LAST EXAM. In an untreated patient, BMD typically declines with age. A lack of decline or gain is usually a sign that treatment is efficacious and fracture risk is reduced. It is important to ask patients whether they are taking their medications and to encourage continued and appropriate compliance with their osteoporosis therapies to reduce fracture risk. It is also important to review their risk factors and encourage appropriate calcium and vitamin D intakes, exercise, fall prevention and other lifestyle measures. Follow-Up: Consider a repeat BMD and Vertebral Fracture Assessment (VFA) exam in 2 years or sooner if medically necessary, to reassess this patient's status. Reported by: NAEL TEE M.D. on 06/15/2023 1:10:00 PM.
== END ==
PROVIDERS: PCP Registered Nurse; Referring Provider Registered Nurse; Visit Provider Registered Nurse
DX: Z12.31 Encounter for screening mammogram for malignant neoplasm of breast (principal); M81.0 Age-related osteoporosis without current pathological fracture; Z79.83 Long term (current) use of bisphosphonates; Z78.0 Asymptomatic menopausal state
CPT/HCPCS: 77063; 77067; 77080